=== PATIENT | female | born 2005 | race Two or more races ===

== ENCOUNTER 2025-03-23 08:23 | Outpatient (CLI) | payer OTHER, SELFPAY | END 2025-03-23 08:24 | disposition home or self-care (01) | PROVIDERS: Visit Provider Registered Nurse | DX: Z00.00 Encounter for general adult medical examination without abnormal findings (principal); Z11.1 Encounter for screening for respiratory tuberculosis; Z13.89 Encounter for screening for other disorder | CPT/HCPCS: 80061; 86480; 87086 ==